=== PATIENT | female | born 1995 | race Asian ===

== ENCOUNTER 2017-11-16 18:11 | Emergency (ER) | payer SELFPAY ==
--- NOTE | 2017-11-16 19:44 | ED ---
Throat Pain/Nasal Congestion - HPI Summary HPI Summary: Complains of sensation of foreign body in throat after eating chicken yesterday at 2 PM. States she has eaten a little bit last night and a little this morning passed. Tolerating fluids. Tolerating secretions. Pain is improving since yesterday. Denies N/V, dysphagia, SOB, CP, fever, cough, abdominal pain. - History of Current Complaint Chief Complaint: EDForeignBodyEsophag Time Seen by Provider: 11/16/17 18:22 Hx Obtained From: Patient, Family/Zinc Etcher Onset/Duration: Sudden Onset Severity: Mild Associated Signs And Symptoms: Positive: FB Sensation Cough: None - Allergies/Home Medications Allergies/Adverse Reactions: Allergies Allergy/AdvReac Type Severity Reaction Status Date / Time No Known Allergies Allergy Verified 11/16/17 19:02 PMH/Surg Hx/FS Hx/Imm Hx Endocrine/Hematology History: Denies: Hx Anticoagulant Therapy Cardiovascular History: Denies: Hx Cardiac Arrest History: Denies: Hx Dialysis EENT History: Denies: Hx Deafness Neurological History: Denies: Hx CVA - Immunization History Immunizations Up to Date: Yes Infectious Disease History: No Infectious Disease History: Denies: Traveled Outside the [place] in Last 30 Days - Social History Alcohol Use: None Substance Use Type: Reports: None Smoking Status (MU): Never Smoked Tobacco Review of Systems Constitutional: Negative Eyes: Negative Positive: Sore Throat Cardiovascular: Negative Respiratory: Negative Gastrointestinal: Negative Genitourinary: Negative Musculoskeletal: Negative Skin: Negative Neurological: Negative Psychological: Normal All Other Systems Reviewed And Are Negative: Yes Physical Exam Triage Information Reviewed: Yes Vital Signs On Initial Exam: Initial Vitals Temp Pulse Resp BP Pulse Ox 97.6 F 78 17 136/85 100 11/16/17 18:14 11/16/17 18:14 11/16/17 18:14 11/16/17 18:14 11/16/17 18:14 Vital Signs Reviewed: Yes Appearance: Positive: Well-Appearing Skin: Positive: Warm Head/Face: Positive: Normal Head/Face Inspection Eyes: Positive: Normal ENT: Positive: Normal ENT inspection Neck: Positive: Supple Respiratory/Lung Sounds: Positive: Clear to Auscultation Cardiovascular: Positive: Normal Abdomen Description: Positive: Nontender Musculoskeletal: Positive: Normal Neurological: Positive: Normal Psychiatric: Positive: Normal AVPU Assessment: Alert - Elaine Coma Scale Best Eye Response: 4 - Spontaneous Best Motor Response: 6 - Obeys Commands Best Verbal Response: 5 - Oriented Coma Scale Total: 15 Diagnostics - Vital Signs Vital Signs Temp Pulse Resp BP Pulse Ox 11/16/17 18:14 97.6 F 78 17 136/85 100 - Laboratory Lab Statement: Any lab studies that have been ordered have been reviewed, and results considered in the medical decision making process. - Radiology neck Xray Interpretation: No Acute Changes Radiology Interpretation Completed By: Radiologist cxr Xray Interpretation: No Acute Changes Radiology Interpretation Completed By: Radiologist EENT Course/Dx - Course Course Of Treatment: Complains of sensation of foreign body in throat after eating chicken yesterday at 2 PM. States she has eaten a little bit last night and a little this morning passed. Tolerating fluids. Tolerating secretions. Pain is improving since yesterday. Denies N/V, dysphagia, SOB, CP, fever, cough , abdominal pain. Patient able to tolerate secretions, fluids, soft foods like rice. No SOB. Physical exam unremarkable. Imaging negative. Advise soft foods diet, Protonix, follow up with GI - Diagnoses Provider Diagnoses: Throat pain Discharge - Sign-Out/Discharge Documenting (check all that apply): Discharge/Admit/Transfer - Discharge Plan Condition: Stable Disposition: HOME Prescriptions: Pantoprazole Sodium [Protonix] 20 mg PO DAILY #8 tablet. Patient Education Materials: Esophageal Foreign Body (ED), Esophagitis (ED) Referrals: Gt Nunez MD [Primary Care Provider] - Irineo Foster MD [Medical Doctor] - Additional Instructions: If symptoms do not improve follow-up with GI specialist Dr. Foster. Return to the ED for any new or worsening symptoms - Billing Disposition and Condition Condition: STABLE Disposition: Home
--- NOTE | 2017-11-16 19:50 | RAD ---
Indication: Foreign body in throat Comparison: None. Technique: AP and lateral views of the neck with soft tissue technique. Report: Unremarkable soft tissue contours. Pharyngeal, laryngeal, and tracheal air columns are normal in contour. The epiglottis is normal. The cervical spine and prevertebral soft tissues are normal. IMPRESSION: No acute abnormality. If the patient's symptoms persist, follow-up imaging is recommended.
--- NOTE | 2017-11-16 20:53 | RAD ---
INDICATION: "Sensation of swallowing a foreign body" COMPARISON: Chest x-ray September 18, 2006 TECHNIQUE: Single AP portable view of the chest was obtained. FINDINGS: Image quality is compromised due to the relative inferiority of a portable chest x-ray. The heart and mediastinum exhibit normal size and contour. The lungs are grossly clear. There is no evidence of a large pleural effusion. Visualized bones are normal for the patient's age. IMPRESSION: No radiographic evidence for acute cardiopulmonary abnormality on this portable chest x-ray.
[2017-11-16 21:33] VITALS: BP 115/64
== END 2017-11-16 21:32 | disposition home or self-care (01) ==
LOC: ED 18:11
DX: R07.0 Pain in throat (principal)
CPT/HCPCS: 70360; 71045; 99282

== ENCOUNTER 2021-01-17 09:45 | Inpatient (IN) ==
[2021-01-17] MEDS ORDERED: Buffered Lidocaine 1% SYRIN 1 ml INTRADERM ONE (13:54)
[2021-01-17] MEDS ORDERED: Lactated Ringers 1000 ml BAG 1,000 ML IV ONE (13:54)
[2021-01-17] MEDS ORDERED: ceFOXitin 2 GM IVPREMIX 2 GM/50 ML BAG IVPB ONE (13:54)
[2021-01-17] MEDS ORDERED: Lactated Ringers 1000 ml BAG 1,000 ML IV SCH ×2 (14:00→19:00)
[2021-01-17 15:00] LABS: ABS Basophils 0.1 10^3/ul (0-0.2); ABS Lymphocytes 1.7 10^3/ul (1.0-4.8); ABS Monocytes 0.7 10^3/ul (0-0.8); ABS Neutrophils 12.9 10^3/ul (1.5-7.7); Eosinophil % 0.1 %; Hematocrit 38 % (35-47); Hemoglobin 11.9 g/dL (12.0-16.0); Lymphocyte % 11.2 %; Mean Corpuscular HGB Conc 32 g/dL (31-36); Mean Corpuscular Hemoglobin 22 pg (27-31); Mean Corpuscular Volume 69 fL (80-97); Mean Platelet Volume 9.5 fL (7.4-10.4); Platelet Count 253 10^3/uL (150-450); Red Blood Count 5.45 10^6 /uL (3.70-4.87); Red Cell Distribution Width 17 % (10-15); White Blood Count 15.5 10^3/uL (3.5-10.8)
[2021-01-17 15:06] LABS: Rapid COVID-19 Molecular Undetected (Undetected)
[2021-01-17] MEDS ORDERED: Oxytocin in LR 20 UNITS/1,000 ML BAG IVPB ONE (15:26)
[2021-01-17] MEDS ORDERED: Lidocaine 1% MPF 5 ML VIAL ONE (15:33)
[2021-01-17] MEDS ORDERED: Lidocaine 1% VIAL 10 MG/ML VIAL ONE (15:34)
[2021-01-17 17:46] LABS: Urine Benzodiazepine Screen None Detected (None Detect); Urine Cannabinoids Screen None Detected (None Detect); Urine Opiates Screen None Detected (None Detect)
[2021-01-17] MEDS ORDERED: Dibucaine 1% OINT 28.35 GM TUBE PR PRN (18:57)
[2021-01-17] MEDS ORDERED: Witch Hazel PAD JAR TOPICAL PRN (18:57)
[2021-01-17] MEDS ORDERED: Witch Hazel PAD JAR ONE (18:59)
[2021-01-17] MEDS ORDERED: Oxytocin in LR 20 UNITS/1,000 ML BAG IVPB SCH (19:00)
[2021-01-18 07:30] LABS: ABS Basophils 0.1 10^3/ul (0-0.2); ABS Lymphocytes 2.2 10^3/ul (1.0-4.8); ABS Monocytes 0.8 10^3/ul (0-0.8); ABS Neutrophils 10.3 10^3/ul (1.5-7.7); Eosinophil % 0.3 %; Hematocrit 34 % (35-47); Hemoglobin 10.9 g/dL (12.0-16.0); Lymphocyte % 16.4 %; Mean Corpuscular HGB Conc 32 g/dL (31-36); Mean Corpuscular Hemoglobin 22 pg (27-31); Mean Corpuscular Volume 68 fL (80-97); Mean Platelet Volume 9.7 fL (7.4-10.4); Platelet Count 237 10^3/uL (150-450); Red Blood Count 4.97 10^6 /uL (3.70-4.87); Red Cell Distribution Width 17 % (10-15); White Blood Count 13.5 10^3/uL (3.5-10.8)
[2021-01-18 08:21] LABS: Hypochromasia 1+; Microcytosis 3+
[2021-01-18 08:22] LABS: Platelet Morphology Large
[2021-01-18 12:10] VITALS: BP 92/60
== END 2021-01-18 19:15 | disposition home or self-care (01) | DRG 560 ==
LOC: MCHOBOUT 09:45 → MCHOB 13:51
PROVIDERS: ADMIT Obstetrics & Gynecology; ATTEND Obstetrics & Gynecology

== ENCOUNTER 2024-02-28 11:13 | Inpatient (IN) ==
[2024-02-28] MEDS ORDERED: Lidocaine 1% VIAL 10 MG/ML 30 ML VIAL INJ PRN (12:23)
[2024-02-28 13:18] LABS: ABS Basophils 0.1 10^3/uL (0.0-0.1); ABS Lymphocytes 1.4 10^3/uL (1.0-4.8); ABS Monocytes 0.8 10^3/uL (0.0-0.9); ABS Neutrophils 8.8 10^3/uL (1.5-7.6); Eosinophil % 0.1 %; Hemoglobin 11.2 g/dL (11.5-14.3); Lymphocyte % 12.6 %; Mean Corpuscular Hemoglobin 22.1 pg (27-33); Mean Corpuscular Hgb Conc 31.9 g/dL (31-36); Mean Corpuscular Volume 69.2 fL (80-97); Mean Platelet Volume 9.8 fL (7.5-11.2); Platelet Count 217 10^3/uL (150-450); Red Blood Count 5.05 10^6/uL (3.63-4.92); Red Cell Distribution Width 15.2 % (12-17); White Blood Count 11.1 10^3/uL (3.8-11.8)
[2024-02-28] MEDS: Oxytocin in LR 20,000 MILLI.UNIT/1,000 ML BAG IV SCH (13:29)
[2024-02-28 13:30] LABS: Urine Benzodiazepine Screen None Detected (None Detect); Urine Cannabinoids Screen None Detected (None Detect); Urine Opiates Screen None Detected (None Detect)
[2024-02-28] MEDS ORDERED: Glycerin ADULT 2.4 gm SUPP PR PRN (13:32)
[2024-02-28] MEDS ORDERED: Lactated Ringers 1000 ml BAG 1,000 ML IV SCH (14:00)
[2024-02-28] MEDS: Witch Hazel PAD JAR TOPICAL PRN (15:45)
[2024-02-28] MEDS: Dibucaine 1% OINT 28.35 GM TUBE PR PRN (15:45)
[2024-02-28] MEDS: Lactated Ringers 1000 ml BAG 1,000 ML IV ONE (19:00)
[2024-02-28] MEDS: Buffered Lidocaine 1% SYRIN 1 ml INTRADERM ONE (19:00)
[2024-02-28] MEDS: Lactated Ringers 1000 ml BAG 1,000 ML IV SCH (19:01)
[2024-02-28] MEDS: Oxytocin in LR 20,000 MILLI.UNIT/1,000 ML BAG IV ONE (19:01)
[2024-02-29 08:27] LABS: Hematocrit 33.8 % (35-45); Hemoglobin 10.5 g/dL (11.5-14.3); Mean Corpuscular Hemoglobin 21.8 pg (27-33); Mean Corpuscular Volume 70.1 fL (80-97); Mean Platelet Volume 10.1 fL (7.5-11.2); Platelet Count 216 10^3/uL (150-450); Red Blood Count 4.82 10^6/uL (3.63-4.92); Red Cell Distribution Width 15.4 % (12-17); White Blood Count 12.5 10^3/uL (3.8-11.8)
[2024-02-29 09:17] LABS: ABS Lymphocytes 1.7 10^3/uL (1.0-4.8); ABS Monocytes 0.7 10^3/uL (0.0-0.9); Anisocytosis 1+; Eosinophil % 0.2 %; Hypochromasia 2+; Lymphocyte % 13.9 %; Microcytosis 2+
[2024-02-29 12:40] VITALS: BP 95/44
== END 2024-02-29 14:26 | disposition home or self-care (01) | DRG 560 ==
LOC: MCHOBOUT 11:13 → MCHOB 12:21
PROVIDERS: ADMIT Obstetrics & Gynecology; ATTEND Advanced Practice Midwife